=== PATIENT | female | born 2000 ===

== ENCOUNTER 2018-12-06 17:47 | Emergency (ER) | payer OTHER ==
[2018-12-06] MEDS ORDERED: Ketorolac *IM* INJ* 60 MG/2 ML VIAL IM ONE (17:59)
--- NOTE | 2018-12-06 18:03 | UC ---
Upper Extremity HPI - HPI Summary HPI Summary: 18 yo, whacked left hand against her knee during a martial arts class, dislocating the fifth digit of the left hand at the MCP joint. Previous dislocation age 8 of the same finger. - History of Current Complaint Stated Complaint: FINGER INJURY Time Seen by Provider: 12/06/18 17:56 Hx Obtained From: Patient Onset/Duration: Sudden Onset, Lasting Minutes Severity Initially: Moderate Severity Currently: Moderate Location Of Pain: Is Discrete @ - left hand fifth digit Character: Throbbing Aggravating Factor(s): Movement - cannot move it Alleviating Factor(s): Ice Associated Signs And Symptoms: Positive: Swelling Related History: Dominant Hand Right - Risk Factors Non-Orthopedic Risk Factor: Negative DVT Risk Factors: Negative Septic Arthritis Risk Factor: Negative - Allergies/Home Medications Allergies/Adverse Reactions: Allergies Allergy/AdvReac Type Severity Reaction Status Date / Time No Known Allergies Allergy Verified 12/06/18 18:15 Home Medications: Home Medications NK [No Home Medications Reported] 12/06/18 [History Confirmed 12/06/18] PMH/Surg Hx/FS Hx/Imm Hx Previously Healthy: Yes - Family History Known Family History: Positive: Non-Contributory - Social History Occupation: Student [employer], [employer] Lives: Dormitory/Roommates Alcohol Use: None Review of Systems All Other Systems Reviewed And Are Negative: Yes Constitutional: Positive: Negative Physical Exam Triage Information Reviewed: Yes Appearance: Well-Appearing, Pain Distress - Moderate initially, improved significantly post reduction. Respiratory: Positive: Lungs clear, Normal breath sounds Cardiovascular: Positive: RRR, No Murmur Musculoskeletal: Positive: ROM Limited @ - left hand fifth digit with volar dislocation at the MCP joint of the fifith digit. Normal neurovascular. Neurological Exam: Normal Neurological: Positive: Alert Psychological Exam: Normal Skin Exam: Normal Procedures - Joint Reduction Left Specify Other Joint Reduced: left hand fifth digit at the Conscious Sedation: No Pre-Procedure NV Exam: Yes - normal cap refill, normal sensation Post Joint Reduction Film: joint reduced Diagnostics - Radiology No standard instances Radiology Interpretation Completed By: ED Physician Summary of Radiographic Findings: Initial xray shows volar dislocation of the fifth phalanx at the MCP joint. Normal post reduction xray. Upper Extremity Course/Dx - Course Course Of Treatment: reduction of finger dislocation/ splinting post reduction. - Differential Dx/Diagnosis Differential Diagnosis/HQI/PQRI: Fracture (Closed), Strain, Sprain, Other - dislocation Provider Diagnosis: Dislocation, finger, metacarpophalangeal joint Discharge ED - Sign-Out/Discharge Documenting (check all that apply): Patient Departure All imaging exams completed and their final reports reviewed: No - Discharge Plan Condition: Good Disposition: HOME Patient Education Materials: Finger Dislocation (ED) Referrals: No Primary Care Phys,NOPCP [Primary Care Provider] - Tramaine Alcazar MD [Medical Doctor] - Additional Instructions: Keep the finger splinted. Use ice for at least 20 minutes 4 times daily until the swelling decreases. You can schedule a follow up assessment with Dr. Alcazar or Dr. Mcdonald at [facility] orthopedics. The injection of ketorolac should be effective for about 6 hours. You can take acetaminophen 650 every 6 hours in addition to this. You can take ibuprofen again at 02:00 am. - Billing Disposition and Condition Condition: GOOD Disposition: Home
--- NOTE | 2018-12-07 09:53 | UC ---
- Progress Note Progress Note: IMPRESSION: INTERVAL REDUCTION OF THE PREVIOUSLY NOTED SUBLUXATION AT THE METACARPAL PHALANGEAL JOINT. NO FRACTURE IS SEEN. Course/Dx - Diagnoses Provider Diagnoses: Dislocation, finger, metacarpophalangeal joint Discharge ED - Sign-Out/Discharge Documenting (check all that apply): Post-Discharge Follow Up All imaging exams completed and their final reports reviewed: Yes - Discharge Plan Condition: Good Disposition: HOME Patient Education Materials: Finger Dislocation (ED) Referrals: Tramaine Alcazar MD [Medical Doctor] - No Primary Care Phys,NOPCP [Primary Care Provider] - Additional Instructions: Keep the finger splinted. Use ice for at least 20 minutes 4 times daily until the swelling decreases. You can schedule a follow up assessment with Dr. Alcazar or Dr. Mcdonald at [facility] orthopedics. The injection of ketorolac should be effective for about 6 hours. You can take acetaminophen 650 every 6 hours in addition to this. You can take ibuprofen again at 02:00 am. - Billing Disposition and Condition Condition: GOOD Disposition: Home
== END 2018-12-06 18:57 | disposition home or self-care (01) ==
LOC: UCEAST 17:47
DX: S63.267A Dislocation of metacarpophalangeal joint of left little finger, initial encounter (principal); W22.8XXA Striking against or struck by other objects, initial encounter; Y93.75 Activity, martial arts; Y92.89 Other specified places as the place of occurrence of the external cause
CPT/HCPCS: 26700; 26775; 73140; 96372; 99201; G0463; J1885